=== PATIENT | female | born 1985 | race Caucasian/White ===

== ENCOUNTER 2020-05-15 16:01 | Emergency (ER) | payer BC, OTHER ==
[2020-05-15 16:35] VITALS: BP 131/68; PULSE 60; TEMP 98.3; BMI 25.2
[2020-05-15] MEDS ORDERED: DIPHTH,PERTUSS(ACELL),TET 0.5 ML DISP.SYRIN IM ONE ×2 (16:56→16:57)
--- NOTE | 2020-05-15 16:57 | PDOC ---
History of Present Illness - General Chief Complaint: Laceration Stated Complaint: LFT HAND FINGER INJURY (MIDDLE) Time Seen by Provider: 05/15/20 16:39 History Source: Patient Exam Limitations: No Limitations - History of Present Illness Initial Comments: 05/15/20 16:58 34 year old female presenting to the ED with left hand 3rd digit laceration. Pt was cutting limes and accidently cut the distal tip of her 3rd digit. Pt immediately put pressure and cleaned the area. Pt not UTD on tetanus. denies numbness tingling loss of sensation in the digit. Past History - Medical History Allergies/Adverse Reactions: Allergies Allergy/AdvReac Type Severity Reaction Status Date / Time azithromycin [From Zithromax] Allergy Verified 05/15/20 16:31 venom-honey bee Allergy Verified 05/15/20 16:31 [bee venom (honey bee)] Home Medications: Ambulatory Orders Oxycodone HCl/Acetaminophen [Percocet 5-325 mg Tablet] 1 tab PO Q4H PRN 01/31/16 COPD: No - Reproductive History Is Patient Now?: No - Immunization History Immunization Up to Date: No - Psycho-Social/Smoking History Smoking History: Current every day smoker Number of Cigarettes Smoked Daily: 4 Information on smoking cessation initiated: No - Substance Abuse Hx (Audit-C & DAST Scrn) How often the patient has a drink containing alcohol: 4 0r more times/wk Number of drinks the patient has on a typical day: 5 or 6 How often the patient has six or more drinks on one occasion: Daily or almost daily Score: In Men: 4 or > Positive; In Women: 3 or > Positive: 10 Screen Result (Pos requires Nsg. Audit-10AR): Positive In the last yr the pt used illegal drug/Rx for NonMed reason: No Score: Yes response is considered Positive: 0 Screen Result (Positive result requires Nsg. DAST-10): Negative *Physical Exam - Vital Signs Last Vital Signs Temp Pulse Resp BP Pulse Ox 98.3 F 60 20 131/68 100 05/15/20 16:32 05/15/20 16:32 05/15/20 16:32 05/15/20 16:32 05/15/20 16:32 - Physical Exam 05/15/20 16:59 Gen: AAOx 3, no acute distress, comfortable, no signs of respiratory distress HENT: atraumatic, normocephalic with no laceration or contusion. Nasal mucosa without erythema. Oropharynx without erythema or exudates. Mucous membranes moist. CV: RRR no murmurs, gallops, or rubs. CHEST: CTA b/l no wheezing, rales or rhonchi ABD: +BS/ND. no TTP; soft, no rebound, no guarding EXTREMITY: no cyanosis or erythema. 2+ dorsalis pedis, posterior tibial, and radial pulse. No pedal edema; no calf swelling or tenderness SKIN: no rash, warm and dry, no diaphoresis NEURO: normal speech, CN II-XII intact, sensation intact, normal gait, no cerebellar deficits MS: 5/5 strength in all extremities, FROM intact in all extremities. L 3rd digit: nail avulsion injury to medial aspect of nail bed with active bleeding, sensation intact <2sec cap refill. Medical Decision Making - Medical Decision Making 05/15/20 17:00 34year old female with nail avulsion VSS Finger soaked in betadine, NS, and hydrogen peroxide Flushed with copious amounts of sterile water Surgicel applied and hemostatsis achieved Finger wrapped with gauze Pt to follow up with Dr Ruiz on a prn basis Pt appears well and is safe and stable for discharge with strict return precautions including signs and symptoms requring immediate return to the ED Supportive care instructions explained and given to pt. Reasons to return emergently to ER explained and given. Importance of follow up with PMD and other specialists as indicated stressed to pt. Pt verbalized understanding of instructions. Pt to follow up with PMD in 2 days. Discharge - Discharge Information Problems reviewed: Yes Clinical Impression/Diagnosis: Nail avulsion Condition: Stable Disposition: HOME - Admission No - Follow up/Referral Referrals: Golden Ruiz MD [Staff Physician] - - Patient Discharge Instructions Patient Printed Discharge Instructions: DI for Nail Avulsion Injury - Post Discharge Activity Work/Back to School Note: Back to Work
== END 2020-05-15 17:06 | disposition home or self-care (01) ==
LOC: JERFT 16:01
PROC: 3E0234Z Introduction of Serum, Toxoid and Vaccine into Muscle, Percutaneous Approach (ICD-10-PCS; principal; 2020-05-15)
DX: S61.213A Laceration without foreign body of left middle finger without damage to nail, initial encounter (principal)
CPT/HCPCS: 90715; 99284-25

== ENCOUNTER 2021-07-18 11:00 | Emergency (ER) | payer BC, OTHER ==
[2021-07-18 11:09] VITALS: BP 132/79; PULSE 73; TEMP 98.1; BMI 26.9
[2021-07-18] MEDS ORDERED: ACETAMINOPHEN 500 MG TABLET (FP) PO ONE (11:13)
[2021-07-18] MEDS ORDERED: ACETAMINOPHEN 325 MG TABLET (FP) ONE (11:19)
== END 2021-07-18 12:19 | disposition home or self-care (01) ==
LOC: FER 11:00
DX: S99.912A Unspecified injury of left ankle, initial encounter (principal); S99.922A Unspecified injury of left foot, initial encounter; X50.0XXA Overexertion from strenuous movement or load, initial encounter; Y93.64 Activity, baseball
CPT/HCPCS: 73610-TC-LT-FY; 73630-TC-LT; 99283-25

== ENCOUNTER 2022-06-17 23:12 | Emergency (ER) | payer BC, OTHER ==
[2022-06-17 23:22] VITALS: BP 99/60; PULSE 76; RESP 16; TEMP 98.7; BMI 27.4
== END 2022-06-18 00:25 | disposition home or self-care (01) ==
LOC: FER 23:12
DX: S93.402A Sprain of unspecified ligament of left ankle, initial encounter (principal); Y93.64 Activity, baseball; Y93.02 Activity, running
CPT/HCPCS: 73610-TC-LT-FY; 99283-25